=== PATIENT | female | born 1995 ===

== ENCOUNTER 2018-09-30 14:44 | Emergency (ER) | payer BC ==
--- NOTE | 2018-09-30 14:52 | UC ---
Lower Extremity/Ankle HPI - HPI Summary HPI Summary: 23 y/o female presents to the urgent care c/o - History of Current Complaint Stated Complaint: TOE COMPLAINT Time Seen by Provider: 09/30/18 14:51 Hx Obtained From: Patient Discharge - Discharge Plan Referrals: No Primary Care Phys,NOPCP [Primary Care Provider] -
--- NOTE | 2018-09-30 15:00 | UC ---
Lower Extremity/Ankle HPI - HPI Summary HPI Summary: 23 yo female presents with great toe pain. She tells me that she has a history of right great toenail avulsion about a year or so ago. The nail has since grown back. She get a pedicure 2 days ago and later that day accidentally stepped on her toenail and the nail distal to the cuticle came off the toe. Since that time she has developed brown/yellow watery drainage from underneath the nail with some pain. She is concerned it is infected. Denies fever or chills - History of Current Complaint Chief Complaint: UCLowerExtremity Stated Complaint: TOE COMPLAINT Time Seen by Provider: 09/30/18 14:51 Hx Obtained From: Patient Hx Last Menstrual Period: 08/25/18 Onset/Duration: Gradual Onset Severity Initially: Moderate Severity Currently: Moderate Pain Intensity: 5 Pain Scale Used: 0-10 Numeric - Allergies/Home Medications Allergies/Adverse Reactions: Allergies Allergy/AdvReac Type Severity Reaction Status Date / Time amoxicillin Allergy Hives Verified 09/30/18 14:57 clavulanic acid Allergy Hives Verified 09/30/18 14:57 [From Augmentin] Sulfa (Sulfonamide Allergy Hives Verified 09/30/18 14:57 Antibiotics) Home Medications: Home Medications Escitalopram * [Lexapro 10 mg (NF)] 10 mg PO DAILY 09/30/18 [History Confirmed 09/30/18] Levonorgestrel-Ethin Estradiol [Levora-28 Tablet] 1 tab PO DAILY 09/30/18 [ History Confirmed 09/30/18] PMH/Surg Hx/FS Hx/Imm Hx Psychological History: Anxiety, Depression - Surgical History Surgical History: Yes Surgery Procedure, Year, and Place: bilateral arms 2003 - Family History Known Family History: Positive: Hypertension - Social History Occupation: Student Lives: With Family Alcohol Use: Occasionally Substance Use Type: None Smoking Status (MU): Never Smoked Tobacco Review of Systems All Other Systems Reviewed And Are Negative: Yes Constitutional: Positive: Negative Skin: Positive: Other - right great toenail injury Respiratory: Positive: Negative Cardiovascular: Positive: Negative Neurovascular: Positive: Negative Neurological: Positive: Negative Psychological: Positive: Negative Physical Exam - Summary Physical Exam Summary: GENERAL: NAD. WDWN. No pain distress. SKIN: RIGHT GREAT TOE: Nail with cuticle intact, but distal to cuticle the nail is avulsed from the toe. Underneath the nail there is mild watery brown drainage. TTP. Toe is not erythematous or edematous. NECK: Supple. Nontender. No lymphadenopathy. CHEST: No accessory muscle use. Breathing comfortably and in no distress. CV: Pulses intact. Cap refill <2seconds NEURO: Alert. PSYCH: Age appropriate behavior. Triage Information Reviewed: Yes Vital Signs: Initial Vital Signs Temp 99 F 09/30/18 14:47 Pulse 89 09/30/18 14:47 Resp 16 09/30/18 14:47 BP 145/83 09/30/18 14:47 Pulse Ox 100 09/30/18 14:47 Vital Signs Reviewed: Yes Lower Extremity Course/Dx - Course Course Of Treatment: Right great toenail infection - will treat with clindamycin. The toe was dressed with telfa and tubegauze today and pt advised to change the dressing daily and keep toenail intact. She plans to f/u with podiatry when she returns home to [place] in a few weeks. - Differential Dx/Diagnosis Provider Diagnosis: Open wound of toe with avulsion of toenail Discharge - Sign-Out/Discharge Documenting (check all that apply): Patient Departure All imaging exams completed and their final reports reviewed: No Studies - Discharge Plan Condition: Stable Disposition: HOME Prescriptions: Clindamycin HCl 300 mg PO TID #21 capsule Patient Education Materials: Partial Nail Avulsion for Ingrown Nail (DC) Referrals: No Primary Care Phys,NOPCP [Primary Care Provider] - Additional Instructions: If you develop a fever, shortness of breath, chest pain, new or worsening symptoms - please call your PCP or go to the ED immediately. Change the dressing daily until well healed. I recommend that you see a chief medical director when you return home for further evaluation and treatment of your toe - Billing Disposition and Condition Condition: STABLE Disposition: Home - Attestation Statements Provider Attestation: I was available for consult. This patient was seen by the PEDRO. The patient was not presented to, seen by, or examined by me. -Stuart
== END 2018-09-30 15:22 | disposition home or self-care (01) ==
LOC: UCEAST 14:44
DX: S91.201A Unspecified open wound of right great toe with damage to nail, initial encounter (principal); L08.9 Local infection of the skin and subcutaneous tissue, unspecified; F32.9 Major depressive disorder, single episode, unspecified; F41.9 Anxiety disorder, unspecified; Z88.0 Allergy status to penicillin; Z88.2 Allergy status to sulfonamides; Z79.899 Other long term (current) drug therapy; X58.XXXA Exposure to other specified factors, initial encounter; Y92.9 Unspecified place or not applicable
CPT/HCPCS: 99202; G0463